=== PATIENT | female | born 1950 | race Caucasian/White ===

== ENCOUNTER 2022-05-21 09:51 | Emergency (ER) | payer OTHER ==
[~2022-05-21] VITALS: Ht 165.1 cm; Wt 99.3 kg
[2022-05-21] MEDS ORDERED: HYDROCHLOROTHIA25 MG (10:11)
[2022-05-21] MEDS ORDERED: AMLODIPINE-OLM1 EAC3 PO (10:11)
[2022-05-21] MEDS ORDERED: GLUMETZA500 MG PO (10:11)
[2022-05-21] MEDS ORDERED: ATORVASTATIN CA10 MG PO (10:12)
[2022-05-21] MEDS ORDERED: BUTALB-ACETAMI1 EACH PO (15:05)
== END 2022-05-21 15:52 | disposition home or self-care (01) ==
LOC: ER 09:51
DX: G44.89 Other headache syndrome (principal); E11.9 Type 2 diabetes mellitus without complications; Z79.84 Long term (current) use of oral hypoglycemic drugs; I10 Essential (primary) hypertension; Z88.8 Allergy status to other drugs, medicaments and biological substances; Z20.822 Contact with and (suspected) exposure to COVID-19

== ENCOUNTER 2022-05-25 20:29 | Emergency (ER) | payer OTHER ==
[~2022-05-25] VITALS: Ht 165.1 cm; Wt 99.8 kg
[~2022-05-25 20:29] MED LIST: AMLODIPINE-OLM1 EAC3 PO; ATORVASTATIN CA10 MG PO; BUTALB-ACETAMI1 EACH PO; GLUMETZA500 MG PO; HYDROCHLOROTHIA25 MG
[2022-05-26] MEDS ORDERED: ESGIC 50-325-41 EACH PO (02:46)
== END 2022-05-26 02:53 ==
LOC: ER 20:29
DX: R51.9 Headache, unspecified (principal); Z88.1 Allergy status to other antibiotic agents; E11.9 Type 2 diabetes mellitus without complications; Z79.84 Long term (current) use of oral hypoglycemic drugs; I10 Essential (primary) hypertension